=== PATIENT | male | born 1980 | race African-American/Black ===

== ENCOUNTER 2016-11-12 15:17 | Emergency (ER) | payer OTHER ==
[~2016-11-12] VITALS: Ht 177.8 cm; Wt 81.7 kg
[2016-11-12 15:18] VITALS: BP 124/91
[2016-11-12] MEDS ORDERED: MOBIC15 MG PO (16:23)
[2016-11-12] MEDS ORDERED: CYCLOBENZAPRINE5 MG PO (16:23)
== END 2016-11-12 16:36 | disposition home or self-care (01) ==
LOC: ER 15:17
DX: S39.012A Strain of muscle, fascia and tendon of lower back, initial encounter (principal); S16.1XXA Strain of muscle, fascia and tendon at neck level, initial encounter; V89.2XXA Person injured in unspecified motor-vehicle accident, traffic, initial encounter; Y93.89 Activity, other specified; Y92.89 Other specified places as the place of occurrence of the external cause; Y99.8 Other external cause status